=== PATIENT | male | born 1960 ===

== ENCOUNTER 2017-11-26 14:34 | Emergency (ER) | payer OTHER ==
[~2017-11-26] VITALS: Ht 177.8 cm; Wt 95.6 kg
[2017-11-26 14:39] VITALS: TEMP 36.8; Ht 177.8 cm; Wt 95.6 kg
--- NOTE | 2017-11-26 15:08 | DIAGNOSTIC IMAGING REPORT ---
L FOOT MIN 3 VIEWS ROUTINE CLINICAL HISTORY: 58 years-old Male presenting with Dropped table on left great toe. TECHNIQUE: Frontal, oblique, and lateral views of the left foot were obtained. COMPARISON: None. FINDINGS: Enthesophyte at the insertion of the Achilles tendon and origin of the plantar fascia. Mild degenerative changes at the ankle mortise. The first toe demonstrates a nondisplaced fracture of the lateral base of the distal phalanx. This is intra-articular. No malalignment. No additional fracture. IMPRESSION: Nondisplaced fracture of the lateral base of the distal phalanx of the first toe. Electronically signed by: Alhaji Hill M.D. 11/26/2017 3:07 PM Dictated Date/Time: 11/26/2017 3:05 PM
[2017-11-26 15:38] VITALS: BP 138/75; PULSE 72; O2SAT 93
--- NOTE | 2017-11-26 15:53 | EMERGENCY ROOM VISIT NOTE ---
ED Visit Note First contact with patient: 14:41 Chief Complaint: Left great toe pain. History of Present Illness: Mr. Owens is a 57-year-old white male who ambulates into the ED complaining of left great toe pain. Patient reports approximately 30 minutes ago he was picking up a small table. The table tilted forward and slipped out of his hand causing the point of the table to strike his left great toe. He reports since that time he has had pain over the anterior and medial aspect of the great toe. Currently he describes his pain as a throbbing sensation. He rates his discomfort 2/10. His pain is nonradiating. His pain worsens slightly with palpation and flexion and extension of the PIP joint. He has not identified any alleviating factors related to the pain. He has not taken any medications for his pain prior to arrival at the hospital. He denies any associated symptoms including ankle pain, the foot pain, other toe pain, foot weakness/ numbness/tingling peer Review of Systems: As noted above in history of present illness. Past Medical History: Hypertension. Current Medications: None reported. Allergies to Medications: Patient denies. Social History: Patient is currently employed; he feels safe in his home environment; he denies tobacco use and admits to social alcohol use. Physical Examination: Vital Signs: Date Time Temp Pulse Resp B/P (MAP) Pulse Ox O2 Delivery O2 Flow Rate FiO2 18 14:39 36.8 82 18 147/81 94 Room Air GENERAL: 57-year-old male in minimal distress due to pain, nontoxic-appearing, afebrile and hemodynamically stable. NEUROLOGICAL: Awake, alert and oriented to person, place and time. Answering questions appropriately and following commands. SKIN: Warm, dry and pink. Left Great Toe: Small superficial abrasion/ laceration to the dorsal aspect of the great toe over the interphalangeal joint. No active bleeding. LEFT FOOT: No gross bony deformity. Soft tissue injury as noted above under SKIN. No tenderness over the metatarsals. Mild tenderness over the proximal and distal phalanx of the left great toe without bony deformity or crepitus. Minimal swelling but no bruising/ecchymosis. Full range of motion in flexion and extension of the MTP and interphalangeal joint against resistance. Throughout the toe the skin was warm and pink and capillary refill was brisk. He was able to distinguish light sensations to all dermatomes. ED Course: Patient is assessed as noted above. Patient's medication list was reviewed. Left Foot X-Rays: Were read by myself and the radiologist and shows a nondisplaced fracture of the lateral base of the distal phalanx of the left great toe. Patient's wounds are cleansed with antibacterial soap and water and covered with bacitracin dressing. Patient was placed in a postop shoe. Patient was educated about today's findings and instructed on his treatment plan ; he verbalized understanding and agreement with this plan. Clinical Impression: Nondisplaced fracture of the lateral base of the distal phalanx of the left great toe. Disposition: Patient discharged home in stable condition; prior to departure he was reassessed and subjectively reported he was feeling worse and rated his discomfort 3/10. Plan: Comfort measures, wound care and signs of infection were discussed with the patient. Patient was encouraged to follow-up with his primary care provider for recheck and possible referral to orthopedics; patient initially reported he did not want to see an orthopedic physician for this injury. Patient was encouraged return the ED for worsening signs of infection, uncontrolled pain or any new/concerning symptoms.
== END 2017-11-26 15:30 | disposition home or self-care (01) ==
LOC: C.EDB 14:36 → EDBD 14:36 → MERGE 14:36 → C.EDD 15:30
DX: S92.425A Nondisplaced fracture of distal phalanx of left great toe, initial encounter for closed fracture (principal); W20.8XXA Other cause of strike by thrown, projected or falling object, initial encounter; S90.412A Abrasion, left great toe, initial encounter